=== PATIENT | male | born 1950 ===

== ENCOUNTER 2017-05-15 15:56 | Emergency (ER) | payer MEDICARE ==
[2017-05-15] MEDS ORDERED: Indomethacin 25 MG Cap ONE (16:00)
--- NOTE | 2017-05-15 21:03 | ER ---
HISTORY OF PRESENT ILLNESS: A 66-year-old male here with complaints of a gout flare up involving the right ankle. He has had a history of gout. He gets several flare ups a year. He usually takes Indocin for a flare up. He has not been on a daily medicine. He states that he was prescribed one on one occasion, but he did not ever started. He never filled the prescription. He did not like the idea of taking a pill every day. The patient also has a rash on the right foot that he has had for a long time. He has been using Cortisporin over the counter ointment, but it does not seem to help. The patient denies any injury to the right ankle or foot. OBJECTIVE: GENERAL APPEARANCE: The patient is awake and alert, in no obvious distress. VITAL SIGNS: Reviewed. He is afebrile and normotensive. EXTREMITIES: Examining the right ankle reveals mild swelling of the ankle. It is very tender with light touch. Both medial and laterally as well as on the anterior aspect of the ankle joint. Mild redness is present. Examining the midfoot area reveals a chronic dry scaly rash that is several centimeters in diameter. It does appear to be consistent with dyshidrotic eczema. There is no weeping or drainage, and no blisters or pustules today. DIAGNOSES: 1. Gout flare up with history of the same. 2. 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 TREATMENT PLAN: I will give the patient Indocin 50 mg tablets, he is to use this every 8 hours until the pain is gone. He was given three doses here in the emergency room and I gave him a script for 20 more. I advised the patient that he really needs to follow up with someone to get a uric acid level checked. He probably needs to be on allopurinol or something similar to keep the flare ups away. I also gave him a script for Kenalog 0.1% cream to be applied b.i.d. for up to 2 weeks p.r.n. for the rash on his right foot. Follow up for this condition as p.r.n. ESTRELLA/SERGO /[id number]
== END 2017-05-15 16:30 | disposition home or self-care (01) ==
LOC: LB.ED 15:56
DX: M10.9 Gout, unspecified (principal); L30.1 Dyshidrosis [pompholyx]
CPT/HCPCS: 99283; A9270